=== PATIENT | male | born 1965 | race African-American/Black ===

== ENCOUNTER → 2021-06-15 | Outpatient (CLI) | payer OTHER ==
--- NOTE | 2021-06-16 09:48 | RAD ---
Abdominal ultrasound 06/16/2021 INDICATION: Lesions seen on outside exam within the liver. Discussion: Ultrasound evaluation of the abdomen was performed. Static images are submitted PACS. The prior imaging noted in the indication is not available for review. Visualized aorta and IVC are unremarkable. Visualized portions of the pancreas are unremarkable. Live r echotexture is grossly normal. Liver size is normal at 15 cm longitudinally. Portal vein is grossly patent. No focal hepatic lesions are identified on provided imaging. There is a 4 mm echogenic focus in the right kidney likely nonobstructing stone. The right kidney is otherwise normal in appearance measuring 10.4 cm in length. The gallbladder is normal in appearance without evidence of wall thicken ing, stones, or sludge. The common bile duct is nondilated at 2 mm. The spleen is normal in size seth uring 9 cm longitudinally. Left kidney is unremarkable in appearance measuring 10.2 cm. IMPRESSION: 1. Probable 4 mm nonobstructing stone, right kidney 2. No liver lesion is identified by ultrasound on today's exam. Prior imaging study is not available for review. Recommend correlation with exam and consideration of hepatic protocol CT or MRI as clinic ally indicated Electronically signed by: Josiah Sheldon MD (06/16/2021 9:46 AM) [id number]
== END ==
LOC: US 08:49
PROVIDERS: ATTEND Nurse Practitioner
DX: Z01.89 Encounter for other specified special examinations (principal)
CPT/HCPCS: 76700